=== PATIENT | male | born 1985 | race African-American/Black ===

== ENCOUNTER 2016-11-24 12:38 | Emergency (ER) | payer OTHER ==
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
[2016-11-24] MEDS ORDERED: IBUPROFEN 800 MG TABLET PO ONE (13:20)
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
[2016-11-24 14:39] VITALS: BP 127/92
== END 2016-11-24 14:39 | disposition home or self-care (01) ==
LOC: ER 12:38
DX: M54.5 Low back pain (principal); M54.9 Dorsalgia, unspecified; M79.604 Pain in right leg; M79.605 Pain in left leg; F17.210 Nicotine dependence, cigarettes, uncomplicated; V87.7XXA Person injured in collision between other specified motor vehicles (traffic), initial encounter
CPT/HCPCS: 72110; 99283